=== PATIENT | male | born 2000 | race Caucasian/White ===

== ENCOUNTER 2023-04-01 18:04 | Emergency (ER) | payer SELFPAY ==
[2023-04-01] MEDS ORDERED: Amoxicillin 500 MG Cap PO ONE (19:34)
== END 2023-04-01 20:06 | disposition home or self-care (01) ==
LOC: JD.ED 18:04
DX: K08.89 Other specified disorders of teeth and supporting structures (principal)
CPT/HCPCS: 99282; A9270; 99283